=== PATIENT | male | born 2000 | race Caucasian/White ===

== ENCOUNTER 2018-11-21 03:39 | Emergency (ER) | payer OTHER ==
[~2018-11-21] VITALS: Ht 182.9 cm; Wt 76.2 kg
--- NOTE | 2018-11-21 04:15 | NUR ---
PATIENT WALKED INTO ER WITH MOTHER C/O ABDOMINAL X1[employer]. PATIENT STATES HE IS CONSTIPATED. DENIES N/V
[2018-11-21] MEDS ORDERED: MAGNESIUM HYDROXIDE 30 ML LIQUID UDC ONE (04:58)
[2018-11-21] MEDS ORDERED: MAGNESIUM CITRATE 296 ML BOTTLE ONE (04:59)
[2018-11-21] MEDS ORDERED: MAGNESIUM CITRATE 296 ML BOTTLE PO ONE (05:00)
[2018-11-21] MEDS ORDERED: MAGNESIUM HYDROXIDE 30 ML LIQUID UDC PO ONE (05:00)
[2018-11-21] MEDS ORDERED: LORAZEPAM 0.5 MG TABLET PO ONE (05:00)
[2018-11-21 05:05] VITALS: BP 148/95
--- NOTE | 2018-11-21 05:05 | NUR ---
Patient discharged to home in stable conditon. Written and verbal after care instructions given. Patient verbalizes understanding of instructions. WALKED OUT OF ER WITH NO DISTRESS NOTED
== END 2018-11-21 05:06 | disposition home or self-care (01) ==
LOC: ER 03:46
DX: K59.00 Constipation, unspecified (principal)
CPT/HCPCS: 74021; A4663